=== PATIENT | female | born 1945 | race Caucasian/White ===

== ENCOUNTER → 2018-03-09 | Outpatient (CLI) | payer MEDICARE, OTHER ==
--- NOTE | 2018-03-09 09:29 | BD ---
EXAMINATION TYPE: Axial Bone Density DATE OF EXAM: 03/09/2018 COMPARISON: 08.03.2014 CLINICAL HISTORY: 72 YR OLD FEMALE....ICD-10 CODE: M85.80 OTHER SPECIFIED DISORDER OF BONE DENSI TY Height: 63 Weight: 145 FRAX RISK QUESTIONS: NOTHING TO NOTE HERE RISK FACTORS HISTORY OF: BROKEN TOE IN PAST ONLY...<50 YRS OLD Active: YES Diet low in dairy products/other sources of calcium: NO Postmenopausal woman: 51 TOTAL HYSTERECTOMY MEDICATIONS: Thyroid Medications: YES, SYNTHROID FOR ABOUT 15 YRS Additional Medications: VIT D Additional History: NOTHING TO NOTE HERE EXAM MEASUREMENTS: Bone mineral densitometry was performed using the OLED-T System. Bone mineral density as measured about the Lumbar spine is: ----- L1-L4(G/cm2): 1.001 T Score Values are as follows: ----- L1: -1.6 ----- L2: -2.0 ----- L3: -1.5 ----- L4: -1.2 ----- L1-L4: -1.5 Bone mineral density has: Decreased -1.2% since study of: 08.03.2014 Bone mineral density about the R hip (g/cm2): 0.888 Bone mineral density about the L hip (g/cm2): 0.933 T Score values are as follows: -----R Neck: -1.6 -----L Neck: -1.6 -----R Total: -1.0 -----L Total: -0.6 Bone mineral density has: Increased 1.4% since study of: 08.03.2014 FRAX%s: THERE IS A 11.5% CHANCE OF A MAJOR OSTEOPOROTIC FX AND A 2.2% FOR A HIP FX....PROBABILITY OF FX IN 10 YRS TIME IMPRESSION: Osteopenia (T Score between -2.5 and -1). There is slightly increased risk of fracture and the patient may be considered for treatment. Re-Screen 2-5 years. NOTE: T-SCORE=SD OF THE YOUNG ADULT MEAN.
--- NOTE | 2018-03-11 09:23 | MM ---
Reason for exam: screening (asymptomatic). Last mammogram was performed 3 years and 7 months ago. History: Patient is postmenopausal. Took progesterone for 7 years. Physical Findings: A clinical breast exam by your physician is recommended on an annual basis and results should be correlated with mammographic findings. MG Screening Mammo w CAD Bilateral CC and MLO view(s) were taken. Prior study comparison: August 03, 2014, bilateral MG screening mammo w CAD. July 31, 2010, bilateral digital screening mammo w/CAD. There are scattered fibroglandular densities. There is chronic nodularity in the left breast. No significant changes when compared with prior studies. ASSESSMENT: Benign, BI-RAD 2 RECOMMENDATION: Routine screening mammogram of both breasts in 1 year.
== END | disposition home or self-care (01) ==
LOC: RADMAMWWP 08:23
PROVIDERS: ATTEND Internal Medicine
DX: Z12.31 Encounter for screening mammogram for malignant neoplasm of breast (principal); M85.89 Other specified disorders of bone density and structure, multiple sites
CPT/HCPCS: 77067; 77080

== ENCOUNTER 2018-12-31 08:04 | Day surgery (SDC) | payer MEDICARE, OTHER ==
[2018-12-29 11:08] VITALS: BMI 24.9
[~2018-12-31 08:04] MED LIST: LACTATED RINGERS 1,000 ML IV SCH; LIDOCAINE 1% 20 ML VIAL (10MG/ML) FOR IV START INTRADERMA PRN
[2018-12-31 08:18] VITALS: RESP 18; TEMP 97.4
[2018-12-31] MEDS ORDERED: PROPOFOL 10 MG/ML 20 ML VIAL IV ONE (09:06)
--- NOTE | 2018-12-31 09:23 | P.PCN ---
Date of Procedure: 12/31/18 Procedure(s) Performed: BRIEF HISTORY: Patient is a 73-year-old pleasant female scheduled for an elective colonoscopy as a part of screening for colorectal neoplasia. Last colonoscopy was 11 years ago. PROCEDURE PERFORMED: Colonoscopy with biopsy. PREOPERATIVE DIAGNOSIS: Screening for colon cancer. IV sedation per Anesthesia. PROCEDURE: After informed consent was obtained, the patient, was brought into the endoscopy unit. IV sedation was administered by Anesthesia under continuous monitoring. Digital rectal examination was normal. Initially the Olympus CF-160 flexible video colonoscope was then inserted in the rectum, gradually advanced into the cecum without any difficulty. Careful examination was performed as the scope was gradually being withdrawn. Ileocecal valve and the appendiceal orifice were visualized and appeared normal. Prep was excellent. Mucosa of the cecum appeared normal. In the ascending colon there was a 3-4 mm sessile polyp that was removed by cold biopsy. The rest of the, ascending colon, transverse colon, descending colon, sigmoid colon, and rectum appeared normal. In the distal sigmoid colon there was another 3-4 mm sessile polyp that was removed by cold biopsy. Retroflexion was performed in the rectum and no lesions were seen. The patient tolerated the procedure well. IMPRESSION: 3-4 mm sessile ascending colon polyp status post removal by cold biopsy 3-4 millimeters sessile sigmoid colon polyp status post removal by cold biopsy RECOMMENDATIONS: Findings of this examination were discussed with the patient as well as her family. She was advised to follow up the biopsy results. If the biopsy shows an adenoma, she can have a repeat colonoscopy in 5 years.
[2018-12-31 10:00] VITALS: BP 155/49; PULSE 56
== END 2018-12-31 10:21 | disposition home or self-care (01) ==
LOC: ORWHC2ENDO 08:04
PROVIDERS: ATTEND Internal Medicine Gastroenterology
DX: Z12.11 Encounter for screening for malignant neoplasm of colon (principal); K63.5 Polyp of colon; E07.9 Disorder of thyroid, unspecified; Z79.890 Hormone replacement therapy
CPT/HCPCS: 88305; 45380; J2704

== ENCOUNTER → 2021-06-18 | Outpatient (CLI) | payer MEDICARE, OTHER ==
--- NOTE | 2021-06-18 16:49 | BD ---
EXAMINATION TYPE: Axial Bone Density DATE OF EXAM: 06/18/2021 COMPARISON: 2017 CLINICAL HISTORY: osteopenia Height: 5'2 Weight: 140 FRAX RISK QUESTIONS: Secondary Osteoporosis: RISK FACTORS HISTORY OF: Postmenopausal woman: y MEDICATIONS: Thyroid Medications: Which medication: Synthroid How Lon years Additional Medications: Additional History: EXAM MEASUREMENTS: Bone mineral densitometry was performed using the [employer] System. Bone mineral density as measured about the Lumbar spine is: ----- L1-L4(G/cm2): T Score Values are as follows:0.969 ----- L2: -2.2 ----- L3: -1.8 ----- L4: -1.2 ----- L1-L4: -1.8 Bone mineral density has: Decreased -2.7% since study of: 03/09/2018 Bone mineral density about the R hip (g/cm2): 0.806 Bone mineral density about the L hip (g/cm2): 0.776 T Score values are as follows: -----R Neck: -1.7 -----L Neck: -1.8 -----R Total: -1.1 -----L Total: -0.8 Bone mineral density has: Decreased -2.9% since study of: 03/09/2018 IMPRESSION: Osteopenia (T Score between -2.5 and -1). There is slightly increased risk of fracture and the patient may be considered for treatment. Re-Screen 2-5 years. NOTE: T-SCORE=SD OF THE YOUNG ADULT MEAN.
--- NOTE | 2021-06-20 11:55 | MM ---
Reason for exam: screening (asymptomatic). Last mammogram was performed 3 years and 3 months ago. History: Patient is postmenopausal. Took progesterone for 7 years. Physical Findings: A clinical breast exam by your physician is recommended on an annual basis and results should be correlated with mammographic findings. MG 3D Screening Mammo W/Cad Bilateral CC and MLO view(s) were taken. Prior study comparison: March 09, 2018, bilateral MG screening mammo w CAD. August 03, 2014, bilateral MG screening mammo w CAD. There are scattered fibroglandular densities. There are benign appearing vascular calcifications bilaterally. There is chronic nodularity in the left breast. There is no discrete abnormality. ASSESSMENT: Benign, BI-RAD 2 RECOMMENDATION: Routine screening mammogram of both breasts in 1 year.
== END | disposition home or self-care (01) ==
LOC: RADMAMWWP 09:35
PROVIDERS: ATTEND Internal Medicine
DX: Z12.31 Encounter for screening mammogram for malignant neoplasm of breast (principal); M85.89 Other specified disorders of bone density and structure, multiple sites; Z78.0 Asymptomatic menopausal state
CPT/HCPCS: 77063; 77067; 77080

== ENCOUNTER → 2022-06-11 | Outpatient (CLI) | payer MEDICARE, OTHER ==
[~2022-06-11] MED LIST changes: -LACTATED RINGERS 1,000 ML IV SCH; -LIDOCAINE 1% 20 ML VIAL (10MG/ML) FOR IV START INTRADERMA PRN; +REGADENOSON 0.4 MG/5 ML SYRINGE IV ONE
--- NOTE | 2022-06-11 10:51 | CA ---
Lexiscan Nuclear Stress Test Report Name: Lindsey Mccrary Exam Date: 06/11/2022 10:01 Exam Location: [facility] Ht (in): 63 Wt (lb): 140 BSA: 1.66 Ordering Phys: Yoshi Cedillo MD Referring Phys: Yoshi Cedillo MD Technologist: Heriberto Mckeon Age: 76 Gender: F : 1945 Procedure CPT: Indications: R07.9 CHEST PAIN ICD-10 Codes: Patient History: CHEST PAIN, DIFFICULTY IN BREATHING, HTN, ELEVATED CHOLESTEROL LEVELS, FAMILY HX OF HEART DISEASE Medications: LEVOTHYROXINE, ATORVASTATIN, LOSARTAN, HZTZ, CoQ10 Meds past 24 hrs: Pretest Chest Pain: STRESS TEST Lexiscan Protocol Exercise Duration (min:sec): 02:[address] Depressions (mm): Angina Score: Cordero Score: Resting HR (bpm): 54 Peak HR (bpm): 83 Resting BP (mmHg): 133 / 61 Peak BP (mmHg): 187 / 60 MPHR: 143 Target HR: 122 % MPHR: 58 METS: 1.0 Total Dose: Peak Dose: Atropine: Double Product: [id number] BP Response: Stress Termination: Stress Symptoms: NO SYMPTOMS Stress Summary: ECG ANALYSIS Resting ECG: Stress ECG: CONCLUSIONS At baseline EKG showed sinus bradycardia, incomplete right bundle branch block with nonspecific ST depressions V3 through V5. Patient recieved IV infusion of Lexiscan 0.4mg and at peak infusion EKG showed no significant change from baseline. Conclusions: 1. Normal EKG response to Lexiscan infusion 2. Nuclear imaging to be reported separately. Dr. Arsen Fierro DO (Electronically Signed) Final Date: 11 June 2022 10:50
--- NOTE | 2022-06-11 12:43 | NM ---
EXAMINATION TYPE: NM stress lexiscan cardiolite DATE OF EXAM: 06/11/2022 COMPARISON: NONE HISTORY: 76-year-old female R07.9, chest pain TECHNIQUE: After the intravenous administration of 9.58 mCi Tc 99m Sestamibi - Cardiolite resting SP ECT images acquired 45 minutes post injection. The patient received 0.4mg Lexiscan, 24.8 mCi Tc 99m Sestamibi - Stress images obtained [address] injection FINDINGS: Review of stress and rest SPECT images demonstrates decreased perfusion along the anterior wall. Thi s appears to be a relatively fixed abnormality and variable, at times, greater on the rest images. Ga lucy analysis shows normal wall motion with an estimated left ventricular ejection fraction of 62 %. TID is upper limits of normal at 1.15. IMPRESSION: Decreased perfusion along the anterior wall appears relatively fixed; favor attenuation a rtifact rather than old infarct. Clinically correlate. No discrete reversibility is seen.
== END | disposition home or self-care (01) ==
LOC: RADNMMAIN 07:49
PROVIDERS: ATTEND Internal Medicine
DX: R07.9 Chest pain, unspecified (principal)
CPT/HCPCS: 93017; 78452; A9500; J2785

== ENCOUNTER → 2024-01-07 | Outpatient (CLI) | payer MEDICARE, OTHER ==
--- NOTE | 2024-01-07 11:09 | US ---
EXAMINATION TYPE: US liver DATE OF EXAM: 01/07/2024 COMPARISON: CLINICAL INDICATION: Female, 78 years old with history of R74.01 ELEVATED TRANSAMINASE LEVEL; Abnorma l labs. No pain. TECHNIQUE: Multiple sonographic images of the right upper quadrant are obtained. FINDINGS: EXAM MEASUREMENTS: Liver Length: 13.0 cm Gallbladder Wall: 0.1 cm CBD: 0.4 cm Right Kidney: 9.1 x 4.2 x 3.3 cm Pancreas: Main pancreatic duct = 5.1 mm Liver: wnl Gallbladder: No stones or wall thickening seen Evidence for sonographic Lombardi's sign: neg CBD: wnl Right Kidney: No hydronephrosis or masses seen at time of scan IMPRESSION: 1. Slightly coarsened echo pattern to the liver can be associated with underlying hepatic steatosis o f mild hepatocellular disease, correlate with liver function studies. 2. Pancreatic main duct is mildly dilated at 5 mm. Consider short-term follow-up CT scan.
== END | disposition home or self-care (01) ==
LOC: RADUSWWP 07:41
PROVIDERS: ATTEND Internal Medicine
DX: R74.01 Elevation of levels of liver transaminase levels (principal); K76.89 Other specified diseases of liver
CPT/HCPCS: 76705

== ENCOUNTER → 2024-01-25 | Outpatient (CLI) | payer MEDICARE, OTHER ==
--- NOTE | 2024-02-17 16:26 | CA ---
Stress Echo Report Lindsey Mccrary Age: 78 Gender: F : 1945 Exam Date: 01/25/2024 09:37 Exam Location: [facility] Stress Ht (in): 63 Wt (lb): 145 Ordering Physician: Referring Physician: DEBRA, Automatic Corn Grinder Operator: Heriberto Mckeon Technologist Procedure CPT: Indication: ICD-9 Codes: Rhythm: Patient History: Shortness of breath, hypertension and hyperlipidemia Cardiac Medications: Medications in past 24 hours: Contrast: Stress Results Protocol: Tom Total dose(mL): Exercise Duration (min:sec): 7:[address] Depression (mm): Angina Score: Cordero Score: METS: 9.1 Resting HR: 48 Resting BP: 138 / 63 Peak HR: 131 Peak BP: 205 / 69 Max Predicted HR: 141 93 % Max Predicted HR Target HR: 120 Double Product: [id number] Stress Summary: Echo images were reviewed on the echo machine. BP Response: Reason for Termination: Reached target heart rate or work-load Cardiac Symptoms: Some shortness of breath that resolved with rest. ECG Analysis Resting ECG: Normal sinus rhythm, Right bundle branch block Stress ECG: Non-diagnostic ECG response due to resting abnormalities Arrhythmia: None Echo Analysis Resting Echo: Normal resting echocardiogram. Peak Echo Analysis: Normal wall thickening thickening and motion MEASUREMENTS (Male/Female) Normal Values CONCLUSIONS 1. Good exercise tolerance 2. Nondiagnostic electrocardiographic stress test 3. Normal stress echocardiogram with no evidence of stress induced ischemia Dr. Chucky Taylor MD (Electronically Signed) Final Date: 25 January 2024 13:31
== END | disposition home or self-care (01) ==
LOC: RADNMMAIN 08:55
PROVIDERS: ATTEND Internal Medicine
DX: R06.02 Shortness of breath (principal)
CPT/HCPCS: 93351